=== PATIENT | female | born 1950 | race Caucasian/White ===

== ENCOUNTER 2016-10-31 06:58 | Day surgery (SDC) | payer MEDICARE, MEDICAID ==
[~2016-10-31 06:58] MED LIST: Sodium Chloride 0.9% 1,000 ML IV SCH
[2016-10-31] MEDS ORDERED: Sodium Chloride 0.9% 1,000 ML IV SCH (07:30)
[2016-10-31] MEDS ORDERED: fentaNYL 100 MCG/2 ML SDV ONE (08:00)
[2016-10-31] MEDS ORDERED: Propofol 200 MG/20 ML SDV ONE (08:00)
[2016-10-31] MEDS ORDERED: Midazolam 1 MG/ML 2 ML SDV ONE (08:01)
[2016-10-31 11:14] VITALS: BP 171/70
--- NOTE | 2016-11-03 10:27 | OR ---
DATE OF PROCEDURE: 10/31/2016 PROCEDURE: Colonoscopy. FINDINGS: 1. Complete resolution of ischemic colitis. 2. Sigmoid colon polyp, 5 mm, completely removed using cold biopsy forceps. COMPLICATIONS: None. FICTION AND NONFICTION PROSE WRITER: None. ANESTHETIC: MAC. PREOPERATIVE DIAGNOSIS: History of ischemic colitis. POSTOPERATIVE DIAGNOSIS: History of ischemic colitis. DESCRIPTION OF PROCEDURE: The patient was placed in left lateral decubitus position. Digital rectal exam was performed without abnormality. The scope was introduced and advanced atraumatically to the ileocecal valve. A photo was taken. The scope was brought back to the colon. The area, which was previously marked with ischemic colitis shows 100% resolution of this with excellent mucosa. In the sigmoid colon, a 5 mm polyp was identified and completely removed. No other abnormalities noted. No abnormalities on retroflexion. The patient tolerated the procedure well. Sedrick Villalba MD /[id number]
== END 2016-10-31 11:00 | disposition home or self-care (01) ==
LOC: JP.SDS 06:58
PROVIDERS: ATTEND Surgery
DX: K63.5 Polyp of colon (principal); I25.10 Atherosclerotic heart disease of native coronary artery without angina pectoris; I73.9 Peripheral vascular disease, unspecified; I10 Essential (primary) hypertension; E03.9 Hypothyroidism, unspecified; E11.9 Type 2 diabetes mellitus without complications; Z88.6 Allergy status to analgesic agent; Z88.8 Allergy status to other drugs, medicaments and biological substances; Z91.048 Other nonmedicinal substance allergy status; Z95.1 Presence of aortocoronary bypass graft; Z72.0 Tobacco use
CPT/HCPCS: 45380; 88305; J2250; J2704; J3010; J7040

== ENCOUNTER 2016-12-26 16:39 | Emergency (ER) | payer MEDICARE, MEDICAID ==
[2016-12-26 17:16] VITALS: BP 202/75
--- NOTE | 2016-12-26 17:54 | EDM.PDOC ---
ED HPI Trauma - General Chief Complaint: Upper Extremity Injury/Pain Stated Complaint: SORE RT ELBOW Time Seen by Provider: 12/26/16 17:35 Source: Reports: Patient, Family History Limitations: Reports: No limitations - History of Present Illness INITIAL COMMENTS - FREE TEXT/NARRATIVE: 58-year-old female in with right elbow pain. She woke yesterday morning with a tender right elbow, and noticed over the past 2 days it has become reddened and slightly swollen. Her elbow rests for extended periods of time on a firm surface while she gets dialysis. She has no fever or chills. No other recent trauma. No previous episodes of similar symptoms. Occurred When: other (2 days) Severity: mild Associated Symptoms: Reports: denies other symptoms Allergies/ADRs: Allergies adhesive Allergy (Unknown, Verified 10/31/16 07:35) Itching amlodipine besylate [From Lotrel] Allergy (Unknown, Verified 10/31/16 07:35) Cannot Remember benazepril HCl [From Lotrel] Allergy (Unknown, Verified 10/31/16 07:35) Cannot Remember diltiazem Allergy (Unknown, Verified 10/31/16 07:35) Cannot Remember nickel [Nickel] Allergy (Unknown, Verified 10/31/16 07:35) Itching terazosin HCl [From Hytrin] Allergy (Unknown, Verified 10/31/16 07:35) Rash codeine Allergy (Verified 10/31/16 07:35) Dizziness bupropion HCl [From Zyban] Adverse Reaction (Unknown, Verified 10/31/16 07:35) Nausea and Vomiting lisinopril Adverse Reaction (Unknown, Verified 10/31/16 07:35) Cough metformin HCl [From Glucophage] Adverse Reaction (Unknown, Verified 10/31/16 07: 35) Diarrhea morphine Adverse Reaction (Unknown, Verified 10/31/16 07:35) Nausea and Vomiting Home Medications: Ambulatory Orders Cholecalciferol (Vitamin D3) [Vitamin D] 2,000 unit PO DAILY 05/08/13 [ Confirmed 10/31/16] Clopidogrel [Plavix] 75 mg PO DAILY 05/08/13 [Confirmed 10/31/16] Ezetimibe [Zetia] 10 mg PO DAILY 05/08/13 [Confirmed 10/31/16] Felodipine [Felodipine ER] 5 mg PO BID 05/08/13 [Confirmed 10/31/16] Isosorbide Mononitrate [Imdur] 60 mg PO DAILY 05/08/13 [Confirmed 10/31/16] Levothyroxine 88 mcg PO DAILY 05/08/13 [Confirmed 10/31/16] Metoprolol Succinate 50 mg PO BID 05/08/13 [Confirmed 10/31/16] Nitroglycerin 0.4 mg SL ASDIRECTED PRN 05/08/13 [Confirmed 10/31/16] Furosemide [Lasix] 40 mg PO DAILY 04/07/16 [Confirmed 10/31/16] Insulin Aspart [NovoLOG] 5 units SQ TID 04/07/16 [Confirmed 10/31/16] Insulin Glarg,Human.Rec.Analog [Lantus] 70 units SQ BEDTIME 04/07/16 [Confirmed 10/31/16] Rosuvastatin [Crestor] 40 mg PO DAILY 05/16/16 [Confirmed 10/31/16] Aspirin 81 mg PO DAILY 10/10/16 [Confirmed 10/31/16] PARoxetine HCl [Paroxetine HCl] 5 mg PO DAILY 10/10/16 [Confirmed 10/31/16] Past Medical History HEENT History: Reports: Impaired vision Cardiovascular History: Reports: Bypass, Hypertension, CT, Stents Respiratory History: Reports: Sleep apnea Gastrointestinal History: Reports: Colon polyp, Other (see below) Other Gastrointestinal History: abd pain L side Genitourinary History: Reports: Other (see below) Other Genitourinary History: Hemodialysis 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: 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, Musculoskeletal History: Reports: Osteoporosis Neurological History: Reports: CVA Endocrine/Metabolic History: Reports: Diabetes, type II, Hyperthyroidism, Obesity/BMI 30+ Hematologic History: Reports: Blood transfusion(s), Iron deficiency Oncologic (Cancer) History: Reports: Breast, Cervix, Renal - Infectious Disease History Infectious Disease History: Reports: Chicken pox - Past Surgical History HEENT Surgical History: Reports: None Cardiovascular Surgical History: Reports: Coronary artery bypass, Coronary artery stent Respiratory Surgical History: Reports: None GI Surgical History: Reports: Colonoscopy, Other (see below) Other GI Surgeries/Procedures: hyst Female Surgical History: Reports: Hysterectomy, Mastectomy Endocrine Surgical History: Reports: None Neurological Surgical History: Reports: None Musculoskeletal Surgical History: Reports: Ganglion cyst Oncologic Surgical History: Reports: Mastectomy Social & Family History - Tobacco Use Smoking Status *Q: Current Every Day Smoker Years of Tobacco use: 55 Packs/Tins Daily: 1 Used Tobacco, but Quit: No Second Hand Smoke Exposure: Yes - Caffeine Use Caffeine Use: Reports: None - Alcohol Use Days Per Week of Alcohol Use: 0 - Recreational Drug Use Recreational Drug Use: No Review of Systems - Review of Systems Review Of Systems: See Below Constitutional: Denies: fever Respiratory: Reports: No Symptoms Cardiovascular: Reports: no symptoms GI/Abdominal: Denies: Nausea, Vomiting Skin: Reports: erythema Psychiatric: Reports: no symptoms Trauma Exam - Physical Exam Exam: See Below Exam Limited By: No limitations General Appearance: Reports: alert, no apparent distress Respiratory Exam: Reports: no respiratory distress Extremities: Reports: other (Exam is otherwise limited to the right elbow. There is erythema over the olecranon, and some slight edema but no fluctuance. It does not feel appreciably warm.) Course - Vital Signs Last Recorded V/S: Last Vital Signs Temp 98.2 F 12/26/16 16:48 Pulse 68 12/26/16 16:48 Resp 16 12/26/16 16:48 BP 202/75 H 12/26/16 16:48 Pulse Ox 97 12/26/16 16:48 - Re-Assessments/Exams Free Text/Narrative Re-Assessment/Exam: 12/26/16 17:51 This patient has a olecranon bursitis of the right elbow. It may just be traumatic from resting on a firm surface during dialysis but there may be early cellulitis. She was started on cephalexin 500 3 times a day for the next 7 days , given 10 hydrocodone for pain control. She will return if worsening or concerns, especially developing fever or increased redness despite treatment Departure - Departure Time of Disposition: 18:07 Disposition: Home, Self-Care 01 Condition: good Clinical Impression: Olecranon bursitis of right elbow Instructions: Elbow Bursitis, [id number] Referrals: Maricarmen Riojas NP [Primary Care Provider] - Forms: ED Department Discharge Care Plan Goals: Continue your current medications, take antibiotic as prescribed and avoid firm surfaces with your elbow until improved. Wrap for comfort and use stronger pain medications if needed. Return if worsening such as increased redness or swelling despite treatment, or development of a fever.
== END 2016-12-26 18:00 | disposition home or self-care (01) ==
LOC: JP.ED 16:39
DX: M70.21 Olecranon bursitis, right elbow (principal); E11.9 Type 2 diabetes mellitus without complications; I10 Essential (primary) hypertension; I25.2 Old myocardial infarction; F17.210 Nicotine dependence, cigarettes, uncomplicated; M81.0 Age-related osteoporosis without current pathological fracture; E03.9 Hypothyroidism, unspecified; E66.9 Obesity, unspecified; Z68.27 Body mass index [BMI] 27.0-27.9, adult; Z95.1 Presence of aortocoronary bypass graft; Z90.710 Acquired absence of both cervix and uterus; Z90.89 Acquired absence of other organs; Z79.899 Other long term (current) drug therapy; Z88.8 Allergy status to other drugs, medicaments and biological substances; Z79.4 Long term (current) use of insulin; Z79.82 Long term (current) use of aspirin; Z88.5 Allergy status to narcotic agent
CPT/HCPCS: 99283

== ENCOUNTER 2017-06-03 09:28 | Emergency (ER) | payer MEDICARE, MEDICAID ==
[2017-06-03 09:37] VITALS: BP 155/85
--- NOTE | 2017-06-03 09:56 | EDM.PDOC ---
ED HPI GENERAL MEDICAL PROBLEM - General Chief Complaint: General Stated Complaint: COLD Time Seen by Provider: 06/03/17 09:46 Source of Information: Reports: Patient, RN Notes Reviewed History Limitations: Reports: No Limitations - History of Present Illness INITIAL COMMENTS - FREE TEXT/NARRATIVE: 66-year-old female presents emergency department day complaint of shortness of breath and ill feeling, she states she's been ill for about 4 days denies any fever she does have a cough but does not produce much sputum she's not tried anything she goes to dialysis had this last on Thursday has not taken medications in 3 days nor has she gone to dialysis today - Related Data Allergies Allergy/AdvReac Type Severity Reaction Status Date / Time adhesive Allergy Unknown Itching Verified 06/03/17 09:38 amlodipine besylate Allergy Unknown Cannot Verified 06/03/17 09:38 [From Lotrel] Remember benazepril HCl [From Lotrel] Allergy Unknown Cannot Verified 06/03/17 09:38 Remember diltiazem Allergy Unknown Cannot Verified 06/03/17 09:38 Remember nickel [Nickel] Allergy Unknown Itching Verified 06/03/17 09:38 terazosin HCl [From Hytrin] Allergy Unknown Rash Verified 06/03/17 09:38 codeine Allergy Dizziness Verified 06/03/17 09:38 bupropion HCl [From Zyban] AdvReac Unknown Nausea and Verified 06/03/17 09:38 Vomiting lisinopril AdvReac Unknown Cough Verified 06/03/17 09:38 metformin HCl AdvReac Unknown Diarrhea Verified 06/03/17 09:38 [From Glucophage] morphine AdvReac Unknown Nausea and Verified 06/03/17 09:38 Vomiting Home Meds: Home Meds Cholecalciferol (Vitamin D3) [Vitamin D] 2,000 unit PO DAILY 05/08/13 [History] Clopidogrel [Plavix] 75 mg PO DAILY 05/08/13 [History] Ezetimibe [Zetia] 10 mg PO DAILY 05/08/13 [History] Felodipine [Felodipine ER] 5 mg PO BID 05/08/13 [History] Isosorbide Mononitrate [Imdur] 60 mg PO DAILY 05/08/13 [History] Levothyroxine 88 mcg PO DAILY 05/08/13 [History] Metoprolol Succinate 50 mg PO BID 05/08/13 [History] Nitroglycerin 0.4 mg SL ASDIRECTED PRN 05/08/13 [History] Furosemide [Lasix] 40 mg PO DAILY 04/07/16 [History] Insulin Aspart [NovoLOG] 5 units SQ TID 04/07/16 [History] Insulin Glarg,Human.Rec.Analog [Lantus] 70 units SQ BEDTIME 04/07/16 [History] Rosuvastatin [Crestor] 40 mg PO DAILY 05/16/16 [History] Aspirin 81 mg PO DAILY 10/10/16 [History] PARoxetine HCl [Paroxetine HCl] 5 mg PO DAILY 10/10/16 [History] Past Medical History HEENT History: Reports: Impaired Vision Cardiovascular History: Reports: Bypass, CAD, High Cholesterol, Hypertension, [place] , Stents Respiratory History: Reports: Sleep Apnea Gastrointestinal History: Reports: Colon Polyp, Other (See Below) Other Gastrointestinal History: abd pain L side Genitourinary History: Reports: Other (See Below) Other Genitourinary History: Hemodialysis 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: 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, Musculoskeletal History: Reports: Osteoporosis Neurological History: Reports: CVA Endocrine/Metabolic History: Reports: Diabetes, Type II, Hyperthyroidism, Obesity/BMI 30+ Other Endocrine/Metabolic History: gets dialysis x 3 a week Hematologic History: Reports: Blood Transfusion(s), Iron Deficiency Oncologic (Cancer) History: Reports: Breast, Cervix, Renal - Infectious Disease History Infectious Disease History: Reports: Chicken Pox - Past Surgical History Cardiovascular Surgical History: Reports: Coronary Artery Bypass, Coronary Artery Stent GI Surgical History: Reports: Colonoscopy, Other (See Below) Neurological Surgical History: Reports: None Musculoskeletal Surgical History: Reports: Ganglion Cyst Oncologic Surgical History: Reports: Mastectomy Social & Family History - Tobacco Use Smoking Status *Q: Current Every Day Smoker Years of Tobacco use: 55 Packs/Tins Daily: 1 Used Tobacco, but Quit: No Second Hand Smoke Exposure: Yes - Caffeine Use Caffeine Use: Reports: None - Alcohol Use Days Per Week of Alcohol Use: 0 - Recreational Drug Use Recreational Drug Use: No ED ROS GENERAL - Review of Systems Review Of Systems: See Below Constitutional: Reports: Weakness, Fatigue. Denies: Fever, Chills HEENT: Reports: No Symptoms Respiratory: Reports: Shortness of Breath, Cough. Denies: Sputum Cardiovascular: Reports: Dyspnea on Exertion GI/Abdominal: Reports: No Symptoms : Reports: No Symptoms Musculoskeletal: Reports: No Symptoms Skin: Reports: No Symptoms Neurological: Reports: No Symptoms ED EXAM, GENERAL - Physical Exam Exam: See Below Free Text/Narrative:: General: Female, not in any distress, alert and oriented x3 HEENT: head is atraumatic normocephalic, eyes pupils equal round reactive to light, sclera clear no conjunctivitis appreciated. Ears tympanic membranes clear and carmona landmarks and light reflex are present bilaterally canals are clear. Nose no septal deviation, nares are clear, no blood present. Mouth mucosa is moist and pink no erythema or exudate noted in soft palate, tongue is midline uvula is midline, dentures in place.. Neck: Supple no thyromegaly no tracheal deviation. Nodes: Cervical nodes subclavicular nodes nontender no palpable lymphadenopathy noted. Lungs: Wheezing rhonchi left side of the chest right side is clear CV: Regular rate and rhythm S1 and S2 appreciated no murmurs rubs or gallops noted. Abdomen: Soft, nontender, no palpable masses or organomegaly appreciated, no distention no guarding bowel sounds are present, . Neuro: Cranial nerves II through XII grossly intact Skin: Warm and dry, intact Extremities: No lower extremity edema appreciated, Course - Vital Signs Last Recorded V/S: Last Vital Signs Temp 98.4 F 06/03/17 09:36 Pulse 62 06/03/17 09:36 Resp 16 06/03/17 09:36 BP 155/85 H 06/03/17 09:36 Pulse Ox 95 06/03/17 09:36 - Orders/Labs/Meds Labs: Laboratory Tests 06/03/17 06/03/17 06/03/17 Range/Units 09:51 10:04 10:04 WBC 8.0 (4.5-11.0) K/uL RBC 3.47 (3.30-5.50) M/uL Hgb 11.5 L (12.0-15.0) g/dL Hct 34.1 L (36.0-48.0) % MCV 98 (80-98) fL MCH 33 H (27-31) pg MCHC 34 (32-36) % Plt Count 172 (150-400) K/uL Neut % (Auto) 78 H (36-66) % Lymph % (Auto) 13 L (24-44) % [place] % (Auto) 8 H (2-6) % Eos % (Auto) 2 (2-4) % Baso % (Auto) 0 (0-1) % Sodium 142 (140-148) mmol/L Potassium 4.0 (3.6-5.2) mmol/L Chloride 109 H (100-108) mmol/L Carbon Dioxide 18 L (21-32) mmol/L Anion Gap 19.0 H (5.0-14.0) mmol/L BUN 46 H (7-18) mg/dL Creatinine 6.8 H* (0.6-1.0) mg/dL Est Cr Clr Drug Dosing 5.69 mL/min Estimated GFR (MDRD) 6 L (>60) Glucose 117 H (74-106) mg/dL Calcium 7.8 L D (8.5-10.1) mg/dL Total Bilirubin 0.2 (0.2-1.0) mg/dL AST 22 (15-37) U/L ALT 26 (12-78) U/L Alkaline Phosphatase 82 (46-116) U/L Troponin I 0.040 (0.000-0.056) ng/mL NT-Pro-B Natriuret Pep 97976 H (5-125) pg/mL Total Protein 6.0 L (6.4-8.2) g/dL Albumin 2.3 L (3.4-5.0) g/dL Globulin 3.7 H (2.3-3.5) g/dL Albumin/Globulin Ratio 0.6 L (1.2-2.2) Departure - Departure Time of Disposition: 11:10 Disposition: DC/Tfer to Acute Hospital 02 Condition: Fair Clinical Impression: CHF, Congestive heart failure, ESRD on dialysis - Discharge Information Referrals: Maricarmen Riojas NP [Primary Care Provider] - Forms: ED Department Discharge - Assessment/Plan Plan: Assessment Acuity = acute Site and laterality = congestive heart failure complicated patient with known history coronary artery disease end-stage renal disease on dialysis as well as hypertension and dyslipidemia Etiology = probably related to not taking medications the last 3 days last dialysis was on Thursday Manifestations = shortness of breath with cough Location of injury = Home Lab values = hemoglobin low 11.5 consistent with chronic normochromic anemia creatinine elevated at 6.8 consistent with end-stage renal disease stage GV D troponin normal 0.04 BNP elevated at 42,072 albumin low at 2.3 consistent hypoalbuminemia chest x-ray consistent with a heart failure type pattern Plan Called discussed the case with Dr. Vieira hospitalist identification officer at [facility] kindly accepted the patient in transport she will be transported via private vehicle her will drive her plan for inpatient dialysis Patient was in agreement with the plan all questions were answered, This note was dictated using [employer] voice recognition software please call with any questions.
--- NOTE | 2017-06-03 10:37 | CR ---
Chest 2V HISTORY: Shortness of breath. COMPARISON: 06/23/2012. FINDINGS: Median sternotomy. The cardiac size is stable and normal in size. There is hyperinflation. Slight prominence of the central pulmonary vessels this can be found with pulmonary hypertension. Ayo y mild interstitial edema not completely excluded. Stable blunting of the left costophrenic angle lik derrick represent tiny pleural effusion or pleural thickening. Impression: Borderline congestive change. The central pulmonary vessels are slightly prominent some of this may b e on the basis of pulmonary hypertension.
== END 2017-06-03 11:26 ==
LOC: JP.ED 09:28
DX: E11.22 Type 2 diabetes mellitus with diabetic chronic kidney disease (principal); I13.2 Hypertensive heart and chronic kidney disease with heart failure and with stage 5 chronic kidney disease, or end stage renal disease; I50.9 Heart failure, unspecified; N18.6 End stage renal disease; Z99.2 Dependence on renal dialysis; F17.210 Nicotine dependence, cigarettes, uncomplicated; I25.2 Old myocardial infarction; E66.9 Obesity, unspecified; Z79.82 Long term (current) use of aspirin; Z79.899 Other long term (current) drug therapy; Z88.5 Allergy status to narcotic agent; Z88.8 Allergy status to other drugs, medicaments and biological substances
CPT/HCPCS: 36415; 71020; 71020-26; 80053; 83880; 84484; 85025; 87804; 99285

== ENCOUNTER 2017-09-09 16:37 | Emergency (ER) | payer MEDICARE, MEDICAID ==
--- NOTE | 2017-09-09 16:49 | EDM.PDOC ---
ED HPI GENERAL MEDICAL PROBLEM - General Chief Complaint: IV Access Related Stated Complaint: MEDICAL VIA [facility] Time Seen by Provider: 09/09/17 16:40 Source of Information: Reports: Patient, EMS History Limitations: Reports: No Limitations - History of Present Illness INITIAL COMMENTS - FREE TEXT/NARRATIVE: 67 yo dialysis patient presents from dialysis for evaluation of bleeding continuously from her shunt in the right arm since finishing her dialysis today. She is on Plavix daily. Arrives via EMS with a large plastic clamp on her R antecubital fossa. EMS reported a systolic BP of about 200 en route. 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: Other (see below) (direct pressure) - Related Data Allergies Allergy/AdvReac Type Severity Reaction Status Date / Time adhesive Allergy Unknown Itching Verified 06/03/17 09:38 amlodipine besylate Allergy Unknown Cannot Verified 06/03/17 09:38 [From Lotrel] Remember benazepril HCl [From Lotrel] Allergy Unknown Cannot Verified 06/03/17 09:38 Remember diltiazem Allergy Unknown Cannot Verified 06/03/17 09:38 Remember nickel [Nickel] Allergy Unknown Itching Verified 06/03/17 09:38 terazosin HCl [From Hytrin] Allergy Unknown Rash Verified 06/03/17 09:38 codeine Allergy Dizziness Verified 06/03/17 09:38 bupropion HCl [From Zyban] AdvReac Unknown Nausea and Verified 06/03/17 09:38 Vomiting lisinopril AdvReac Unknown Cough Verified 06/03/17 09:38 metformin HCl AdvReac Unknown Diarrhea Verified 06/03/17 09:38 [From Glucophage] morphine AdvReac Unknown Nausea and Verified 06/03/17 09:38 Vomiting Home Meds: Home Meds Cholecalciferol (Vitamin D3) [Vitamin D] 2,000 unit PO DAILY 05/08/13 [History] Clopidogrel [Plavix] 75 mg PO DAILY 05/08/13 [History] Ezetimibe [Zetia] 10 mg PO DAILY 05/08/13 [History] Felodipine [Felodipine ER] 5 mg PO BID 05/08/13 [History] Isosorbide Mononitrate [Imdur] 60 mg PO DAILY 05/08/13 [History] Levothyroxine 88 mcg PO DAILY 05/08/13 [History] Metoprolol Succinate 50 mg PO BID 05/08/13 [History] Nitroglycerin 0.4 mg SL ASDIRECTED PRN 05/08/13 [History] Furosemide [Lasix] 40 mg PO DAILY 04/07/16 [History] Insulin Aspart [NovoLOG] 5 units SQ TID 04/07/16 [History] Insulin Glarg,Human.Rec.Analog [Lantus] 70 units SQ BEDTIME 04/07/16 [History] Rosuvastatin [Crestor] 40 mg PO DAILY 05/16/16 [History] Aspirin 81 mg PO DAILY 10/10/16 [History] PARoxetine HCl [Paroxetine HCl] 5 mg PO DAILY 10/10/16 [History] Past Medical History HEENT History: Reports: Impaired Vision Cardiovascular History: Reports: Bypass, CAD, High Cholesterol, Hypertension, [place] , Stents Respiratory History: Reports: Sleep Apnea Gastrointestinal History: Reports: Colon Polyp, Other (See Below) Other Gastrointestinal History: abd pain L side Genitourinary History: Reports: Other (See Below) Other Genitourinary History: 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: 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, Musculoskeletal History: Reports: Osteoporosis Neurological History: Reports: CVA Endocrine/Metabolic History: Reports: Diabetes, Type II, Hyperthyroidism, Obesity/BMI 30+ Other Endocrine/Metabolic History: gets dialysis x 3 a week Hematologic History: Reports: Blood Transfusion(s), Iron Deficiency Oncologic (Cancer) History: Reports: Breast, Cervix, Renal - Infectious Disease History Infectious Disease History: Reports: Chicken Pox - Past Surgical History Cardiovascular Surgical History: Reports: Coronary Artery Bypass, Coronary Artery Stent GI Surgical History: Reports: Colonoscopy, Other (See Below) Neurological Surgical History: Reports: None Musculoskeletal Surgical History: Reports: Ganglion Cyst Oncologic Surgical History: Reports: Mastectomy Social & Family History - Tobacco Use Smoking Status *Q: Current Every Day Smoker Years of Tobacco use: 55 Packs/Tins Daily: 1 Used Tobacco, but Quit: No Second Hand Smoke Exposure: Yes - Caffeine Use Caffeine Use: Reports: None - Alcohol Use Days Per Week of Alcohol Use: 0 - Recreational Drug Use Recreational Drug Use: No Review of Systems - Review of Systems Review Of Systems: See Below Constitutional: Reports: No Symptoms Respiratory: Reports: No Symptoms Cardiovascular: Reports: No Symptoms Musculoskeletal: Reports: No Symptoms Skin: Reports: Wound (R antecubital fossa) Neurological: Reports: No Symptoms ED EXAM, GENERAL - Physical Exam Exam: See Below Exam Limited By: No Limitations General Appearance: Alert, WD/WN, No Apparent Distress Eye Exam: Bilateral Eye: Normal Inspection Ears: Normal External Exam, Normal Canal, Hearing Grossly Normal Ear Exam: Bilateral Ear: Auricle Normal, Canal Normal Nose: Normal Inspection, Normal Mucosa, No Blood Throat/Mouth: Normal Inspection, Normal Lips, Normal Oropharynx, Normal Voice, No Airway Compromise Head: Atraumatic, Normocephalic Neck: Normal Inspection Respiratory/Chest: No Respiratory Distress, Lungs Clear, Normal Breath Sounds, No Accessory Muscle Use Cardiovascular: Regular Rate, Rhythm GI/Abdominal: Normal Bowel Sounds, Soft, Non-Tender Extremities: Normal Inspection, Normal Range of Motion, Non-Tender, No Pedal Edema Neurological: Alert, Oriented, CN II-XII Intact, Normal Cognition, No Motor/ Sensory Deficits Psychiatric: Normal Affect, Normal Mood Skin Exam: Warm, Dry, Intact, Normal Color, No Rash, Wound/Incision (arterial bleeding from the R antecubital fossa. ) Course - Vital Signs Text/Narrative:: Unable to stop bleeding here in ER with pressure to allow suturing. Case discussed with Dr. Alcaraz at [facility]. Will send her to the ER Dr. South accepting. Last Recorded V/S: Last Vital Signs Temp 36.2 C 09/09/17 16:44 Pulse 57 L 09/09/17 16:44 Resp 16 09/09/17 16:44 BP 173/60 H 09/09/17 16:44 Pulse Ox 96 09/09/17 16:44 Departure - Departure Time of Disposition: 17:45 Disposition: DC/Tfer to Acute Hospital 02 Condition: Fair Clinical Impression: Hemorrhage of arteriovenous fistula Qualifiers: Encounter type: initial encounter Qualified Code(s): T82.838A - Hemorrhage due to vascular prosthetic devices, implants and grafts, initial encounter Clinical Impression: (Ruled Out): Surgical arteriovenous fistula hemorrhage - Discharge Information Referrals: Maricarmen Riojas NP [Primary Care Provider] - Forms: ED Department Discharge
[2017-09-09 17:39] VITALS: BP 199/50
[2017-09-09] MEDS ORDERED: Lactated Ringers 1,000 ML IV SCH (17:45)
== END 2017-09-09 18:00 ==
LOC: JP.ED 16:37
DX: T82.838A Hemorrhage due to vascular prosthetic devices, implants and grafts, initial encounter (principal); F17.210 Nicotine dependence, cigarettes, uncomplicated; I10 Essential (primary) hypertension; E11.9 Type 2 diabetes mellitus without complications; E03.9 Hypothyroidism, unspecified; E78.00 Pure hypercholesterolemia, unspecified; Z79.82 Long term (current) use of aspirin; Z88.8 Allergy status to other drugs, medicaments and biological substances; Z88.1 Allergy status to other antibiotic agents; Z88.5 Allergy status to narcotic agent; Z88.2 Allergy status to sulfonamides; Z79.4 Long term (current) use of insulin; Z91.09 Other allergy status, other than to drugs and biological substances; Z79.899 Other long term (current) drug therapy
CPT/HCPCS: 99285; J7120

== ENCOUNTER 2018-04-02 16:01 | Emergency (ER) | payer MEDICARE, MEDICAID ==
[2018-04-02 16:08] VITALS: BP 184/61
--- NOTE | 2018-04-02 17:01 | EDM.PDOC ---
ED HPI GENERAL MEDICAL PROBLEM - General Chief Complaint: General Stated Complaint: illness Time Seen by Provider: 04/02/18 16:43 Source of Information: Reports: Patient, Family, RN Notes Reviewed History Limitations: Reports: No Limitations - History of Present Illness INITIAL COMMENTS - FREE TEXT/NARRATIVE: 67-year-old dialysis patient presents to the emergency department with bleeding from her AV fistula she recently left dialysis, she has had the clamp on for one hour - Related Data Allergies Allergy/AdvReac Type Severity Reaction Status Date / Time adhesive Allergy Unknown Itching Verified 04/02/18 16:11 amlodipine besylate Allergy Unknown Cannot Verified 04/02/18 16:11 [From Lotrel] Remember benazepril HCl [From Lotrel] Allergy Unknown Cannot Verified 04/02/18 16:11 Remember diltiazem Allergy Unknown Cannot Verified 04/02/18 16:11 Remember nickel [Nickel] Allergy Unknown Itching Verified 04/02/18 16:11 terazosin HCl [From Hytrin] Allergy Unknown Rash Verified 04/02/18 16:11 codeine Allergy Dizziness Verified 04/02/18 16:11 bupropion HCl [From Zyban] AdvReac Unknown Nausea and Verified 04/02/18 16:11 Vomiting lisinopril AdvReac Unknown Cough Verified 04/02/18 16:11 metformin HCl AdvReac Unknown Diarrhea Verified 04/02/18 16:11 [From Glucophage] morphine AdvReac Unknown Nausea and Verified 04/02/18 16:11 Vomiting Home Meds: Home Meds Ezetimibe [Zetia] 10 mg PO DAILY 05/08/13 [History] Insulin Glarg,Human.Rec.Analog [Lantus] 25 units SQ BEDTIME 04/07/16 [History] Rosuvastatin [Crestor] 40 mg PO DAILY 05/16/16 [History] PARoxetine HCl [Paroxetine HCl] 10 mg PO DAILY 10/10/16 [History] Levothyroxine Sodium [Levoxyl] 50 mcg PO DAILY 03/21/18 [History] Losartan [Cozaar] 100 mg PO DAILY 03/21/18 [History] Aspirin [Ecotrin] 81 mg PO DAILY 04/02/18 [History] Calcium Carbonate [Calcium] 1 tab PO BID 04/02/18 [History] Cholecalciferol (Vitamin D3) [Vitamin D3] 1 cap PO DAILY 04/02/18 [History] Clopidogrel Bisulfate [Clopidogrel] 75 mg PO DAILY 04/02/18 [History] Felodipine [Felodipine ER] 5 mg PO BID 04/02/18 [History] Folic Acid/Vit B Complex and C [Dialyvite] 1 tab PO DAILY 04/02/18 [History] Furosemide [Lasix] 40 mg PO DAILY 04/02/18 [History] Metoprolol Tartrate 75 mg PO BID 04/02/18 [History] Nitroglycerin [Nitrostat] 0.4 mg SL ASDIRECTED PRN 04/02/18 [History] Sevelamer Carbonate [Renvela] 800 mg PO TID 04/02/18 [History] cloNIDine [cloNIDine HCl] 0.1 mg PO BID 04/02/18 [History] Past Medical History HEENT History: Reports: Impaired Vision Cardiovascular History: Reports: Bypass, CAD, High Cholesterol, Hypertension, [place] , Stents Respiratory History: Reports: Sleep Apnea Gastrointestinal History: Reports: Colon Polyp, Other (See Below) Other Gastrointestinal History: abd pain L side Genitourinary History: Reports: Dialysis, Other (See Below) Other Genitourinary History: Hemodialysis 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: Reports: 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, Musculoskeletal History: Reports: Osteoporosis Neurological History: Reports: CVA Endocrine/Metabolic History: Reports: Diabetes, Type II, Hyperthyroidism, Obesity/BMI 30+ Other Endocrine/Metabolic History: gets dialysis x 3 a week, MWF Hematologic History: Reports: Blood Transfusion(s), Iron Deficiency Oncologic (Cancer) History: Reports: Breast, Cervix, Renal - Infectious Disease History Infectious Disease History: Reports: Chicken Pox - Past Surgical History Cardiovascular Surgical History: Reports: Coronary Artery Bypass, Coronary Artery Stent GI Surgical History: Reports: Colonoscopy, Other (See Below) Female Surgical History: Reports: Section, Hysterectomy Endocrine Surgical History: Reports: Other (See Below) Other Endocrine Surgeries/Procedures: "killed it off" Neurological Surgical History: Reports: None Musculoskeletal Surgical History: Reports: Ganglion Cyst Oncologic Surgical History: Reports: Mastectomy, Other (See Below) Other Oncologic Surgeries/Procedures: left kidney removed Social & Family History - Tobacco Use Smoking Status *Q: Current Every Day Smoker Years of Tobacco use: 60 Packs/Tins Daily: 1 - Caffeine Use Caffeine Use: Reports: Soda - Recreational Drug Use Recreational Drug Use: No ED ROS GENERAL - Review of Systems Review Of Systems: See Below Skin: Reports: Wound ED EXAM, GENERAL - Physical Exam Exam: See Below Free Text/Narrative:: Bleeding from her puncture site of the AV fistula Exam Limited By: No Limitations General Appearance: Alert, WD/WN, No Apparent Distress ED GENERAL MEDICAL PROCEDURES - Laceration/Wound Repair Right Arm Appearance: Superficial Distal NVT: Neuro & Vascular Intact, No Tendon Injury Skin Prep: Isopropyl Alcohol (Alcohol) Closed with: Sutures Suture Size: other (5-0) # of Sutures: 1 Suture Type: Other ([id number]) Complications: No Course - Vital Signs Last Recorded V/S: Last Vital Signs Temp 98.2 F 04/02/18 16:20 Pulse 62 04/02/18 16:20 Resp 16 04/02/18 16:20 BP 184/61 H 04/02/18 16:20 Pulse Ox 95 04/02/18 16:20 Departure - Departure Time of Disposition: 17:00 Disposition: Home, Self-Care 01 Condition: Fair Clinical Impression: Hemorrhage of arteriovenous fistula Qualifiers: Encounter type: initial encounter Qualified Code(s): T82.838A - Hemorrhage due to vascular prosthetic devices, implants and grafts, initial encounter - Discharge Information Referrals: PCP,None [Primary Care Provider] - Additional Instructions: Resume your regular medications keep your regular dialysis schedule call return to the emergency department worsening of symptoms - Assessment/Plan Plan: Assessment Acuity = acute Site and laterality = bleeding AV fistula site Etiology = from dialysis catheter Manifestations = none Location of injury = Home Lab values = none Plan Called discussed case Dr. Sweeney general surgery recommended [id number] stitch, she can follow-up regular dialysis and regular medications This note was dictated using [employer] voice recognition software please call with any questions on syntax or grammar.
== END 2018-04-02 17:12 | disposition home or self-care (01) ==
LOC: JP.ED 16:01
DX: T82.838A Hemorrhage due to vascular prosthetic devices, implants and grafts, initial encounter (principal); S41.111A Laceration without foreign body of right upper arm, initial encounter; I10 Essential (primary) hypertension; I25.2 Old myocardial infarction; E11.9 Type 2 diabetes mellitus without complications; E05.90 Thyrotoxicosis, unspecified without thyrotoxic crisis or storm; Z99.2 Dependence on renal dialysis; Z91.09 Other allergy status, other than to drugs and biological substances; Z88.8 Allergy status to other drugs, medicaments and biological substances; Z79.899 Other long term (current) drug therapy; E78.00 Pure hypercholesterolemia, unspecified; X58.XXXA Exposure to other specified factors, initial encounter; Z79.82 Long term (current) use of aspirin
CPT/HCPCS: 12001; 99282; 99283-25

== ENCOUNTER 2018-10-22 15:59 | Emergency (ER) | payer MEDICARE, MEDICAID ==
--- NOTE | 2018-10-22 17:55 | EDM.PDOC ---
ED HPI GENERAL MEDICAL PROBLEM - General Chief Complaint: General Stated Complaint: SENT FROM [facility] Time Seen by Provider: 10/22/18 16:41 Source of Information: Reports: Patient History Limitations: Reports: No Limitations - History of Present Illness INITIAL COMMENTS - FREE TEXT/NARRATIVE: This lady just came over from the dialysis clinic. She had finished her dialysis but is bleeding from the upper puncture site to her shot it is on her the biceps area. I placed a clamp on it but it still doesn't seem to want to stop. No other complaints - Related Data Allergies Allergy/AdvReac Type Severity Reaction Status Date / Time adhesive Allergy Unknown Itching Verified 04/28/18 11:11 amlodipine besylate Allergy Unknown Cannot Verified 04/28/18 11:11 [From Lotrel] Remember benazepril HCl [From Lotrel] Allergy Unknown Cannot Verified 04/28/18 11:11 Remember diltiazem Allergy Unknown Cannot Verified 04/28/18 11:11 Remember nickel [Nickel] Allergy Unknown Itching Verified 04/28/18 11:11 terazosin HCl [From Hytrin] Allergy Unknown Rash Verified 04/28/18 11:11 codeine Allergy Dizziness Verified 04/28/18 11:11 bupropion HCl [From Zyban] AdvReac Unknown Nausea and Verified 04/28/18 11:11 Vomiting lisinopril AdvReac Unknown Cough Verified 04/28/18 11:11 metformin HCl AdvReac Unknown Diarrhea Verified 04/28/18 11:11 [From Glucophage] morphine AdvReac Unknown Nausea and Verified 04/28/18 11:11 Vomiting Home Meds: Home Meds Ezetimibe [Zetia] 10 mg PO DAILY 05/08/13 [History] Insulin Glarg,Human.Rec.Analog [Lantus] 25 units SQ BEDTIME 04/07/16 [History] Rosuvastatin [Crestor] 40 mg PO DAILY 05/16/16 [History] PARoxetine HCl [Paroxetine HCl] 10 mg PO DAILY 10/10/16 [History] Levothyroxine Sodium [Levoxyl] 50 mcg PO DAILY 03/21/18 [History] Losartan [Cozaar] 100 mg PO DAILY 03/21/18 [History] Aspirin [Ecotrin] 81 mg PO DAILY 04/02/18 [History] Calcium Carbonate [Calcium] 1 tab PO BID 04/02/18 [History] Cholecalciferol (Vitamin D3) [Vitamin D3] 1 cap PO DAILY 04/02/18 [History] Clopidogrel Bisulfate [Clopidogrel] 75 mg PO DAILY 04/02/18 [History] Felodipine [Felodipine ER] 5 mg PO BID 04/02/18 [History] Folic Acid/Vit B Complex and C [Dialyvite] 1 tab PO DAILY 04/02/18 [History] Furosemide [Lasix] 40 mg PO DAILY 04/02/18 [History] Metoprolol Tartrate 75 mg PO BID 04/02/18 [History] Nitroglycerin [Nitrostat] 0.4 mg SL ASDIRECTED PRN 04/02/18 [History] Sevelamer Carbonate [Renvela] 800 mg PO TID 04/02/18 [History] cloNIDine [cloNIDine HCl] 0.1 mg PO BID 04/02/18 [History] Past Medical History HEENT History: Reports: Impaired Vision Cardiovascular History: Reports: Bypass, CAD, High Cholesterol, Hypertension, [place] , Stents Respiratory History: Reports: Sleep Apnea Gastrointestinal History: Reports: Colon Polyp, Other (See Below) Other Gastrointestinal History: abd pain L side Genitourinary History: Reports: Dialysis, Other (See Below) Other Genitourinary History: Hemodialysis 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: 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, Musculoskeletal History: Reports: Osteoporosis Neurological History: Reports: CVA Endocrine/Metabolic History: Reports: Diabetes, Type II, Hyperthyroidism, Obesity/BMI 30+ Other Endocrine/Metabolic History: gets dialysis x 3 a week, MWF Hematologic History: Reports: Blood Transfusion(s), Iron Deficiency Oncologic (Cancer) History: Reports: Breast, Cervix, Renal - Infectious Disease History Infectious Disease History: Reports: Chicken Pox - Past Surgical History Cardiovascular Surgical History: Reports: Coronary Artery Bypass, Coronary Artery Stent GI Surgical History: Reports: Colonoscopy, Other (See Below) Female Surgical History: Reports: Section, Hysterectomy Endocrine Surgical History: Reports: Other (See Below) Other Endocrine Surgeries/Procedures: "killed it off" Neurological Surgical History: Reports: None Musculoskeletal Surgical History: Reports: Ganglion Cyst Oncologic Surgical History: Reports: Mastectomy, Other (See Below) Other Oncologic Surgeries/Procedures: left kidney removed Social & Family History - Tobacco Use Smoking Status *Q: Never Smoker - Caffeine Use Caffeine Use: Reports: Coffee - Recreational Drug Use Recreational Drug Use: No ED ROS GENERAL - Review of Systems Review Of Systems: ROS reveals no pertinent complaints other than HPI. ED EXAM, GENERAL - Physical Exam Exam: See Below Exam Limited By: No Limitations General Appearance: Alert, Other (Chronically ill appearing) Extremities: Other (She has fairly active bleeding from the puncture site to the shots in the right biceps area. There was a large clamp on that area.) Course - Vital Signs Last Recorded V/S: Last Vital Signs Temp 36.1 C 10/22/18 16:04 Pulse 50 L 10/22/18 16:04 Resp 18 10/22/18 16:04 BP 213/61 H 10/22/18 16:04 Pulse Ox - Re-Assessments/Exams Free Text/Narrative Re-Assessment/Exam: 10/22/18 17:51 The clamp and dressing were removed and a compression dressing was placed on that area. It was rechecked just a short while ago and the bleeding appears to have stopped area Departure - Departure Time of Disposition: 17:52 Disposition: Home, Self-Care 01 Condition: Fair Clinical Impression: Bleeding from dialysis shunt - Discharge Information Referrals: Reyna Connors PALeiC [Primary Care Provider] - Additional Instructions: Leave the dressing on tonight and he may remove it tomorrow. If you have more trouble bleeding return to the ER. Follow-up for dialysis at your next scheduled appointment
[2018-10-22 18:01] VITALS: BP 203/62
== END 2018-10-22 18:18 | disposition home or self-care (01) ==
LOC: JP.ED 15:59
DX: T82.838A Hemorrhage due to vascular prosthetic devices, implants and grafts, initial encounter (principal); E11.9 Type 2 diabetes mellitus without complications; I10 Essential (primary) hypertension; E78.00 Pure hypercholesterolemia, unspecified; I25.2 Old myocardial infarction; Z79.4 Long term (current) use of insulin; Z79.899 Other long term (current) drug therapy; Z91.09 Other allergy status, other than to drugs and biological substances; Z88.5 Allergy status to narcotic agent; Z88.8 Allergy status to other drugs, medicaments and biological substances
CPT/HCPCS: 99283

== ENCOUNTER 2018-10-23 13:08 | Emergency (ER) | payer MEDICARE, MEDICAID ==
[2018-10-23 13:52] VITALS: BP 155/44
--- NOTE | 2018-10-23 14:26 | EDM.PDOC ---
ED HPI GENERAL MEDICAL PROBLEM - General Chief Complaint: Upper Extremity Injury/Pain Stated Complaint: SWOLLEN RIGHT HAND Time Seen by Provider: 10/23/18 14:10 Source of Information: Reports: Patient, Old Records, RN History Limitations: Reports: No Limitations - History of Present Illness INITIAL COMMENTS - FREE TEXT/NARRATIVE: 68 yo female dialysis patient was seen here last night for a bleeding shunt. She had a compressive dressing applied and was not told to elevate her arm. Today when she woke up that R arm was swollen. She is here worried that this represents and infection. She has not had a fever or chills. No other sx's. Bleeding has been controlled since she was seen last night. Onset: Today Onset Date: 10/23/18 Duration: Hour(s):, Getting Worse Location: Reports: Upper Extremity, Right Quality: Reports: Other (no pain) Severity: Mild Improves with: Reports: None Worsens with: Reports: Other (? 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) (none) - Related Data Allergies Allergy/AdvReac Type Severity Reaction Status Date / Time adhesive Allergy Unknown Itching Verified 10/23/18 13:57 amlodipine besylate Allergy Unknown Cannot Verified 10/23/18 13:57 [From Lotrel] Remember benazepril HCl [From Lotrel] Allergy Unknown Cannot Verified 10/23/18 13:57 Remember diltiazem Allergy Unknown Cannot Verified 10/23/18 13:57 Remember nickel [Nickel] Allergy Unknown Itching Verified 10/23/18 13:57 terazosin HCl [From Hytrin] Allergy Unknown Rash Verified 10/23/18 13:57 codeine Allergy Dizziness Verified 10/23/18 13:57 bupropion HCl [From Zyban] AdvReac Unknown Nausea and Verified 10/23/18 13:57 Vomiting lisinopril AdvReac Unknown Cough Verified 10/23/18 13:57 metformin HCl AdvReac Unknown Diarrhea Verified 10/23/18 13:57 [From Glucophage] morphine AdvReac Unknown Nausea and Verified 10/23/18 13:57 Vomiting Home Meds: Home Meds Ezetimibe [Zetia] 10 mg PO DAILY 05/08/13 [History] Insulin Glarg,Human.Rec.Analog [Lantus] 25 units SQ BEDTIME 04/07/16 [History] Rosuvastatin [Crestor] 40 mg PO DAILY 05/16/16 [History] PARoxetine HCl [Paroxetine HCl] 10 mg PO DAILY 10/10/16 [History] Levothyroxine Sodium [Levoxyl] 50 mcg PO DAILY 03/21/18 [History] Losartan [Cozaar] 100 mg PO DAILY 03/21/18 [History] Aspirin [Ecotrin] 81 mg PO DAILY 04/02/18 [History] Calcium Carbonate [Calcium] 1 tab PO BID 04/02/18 [History] Cholecalciferol (Vitamin D3) [Vitamin D3] 1 cap PO DAILY 04/02/18 [History] Clopidogrel Bisulfate [Clopidogrel] 75 mg PO DAILY 04/02/18 [History] Felodipine [Felodipine ER] 5 mg PO BID 04/02/18 [History] Folic Acid/Vit B Complex and C [Dialyvite] 1 tab PO DAILY 04/02/18 [History] Furosemide [Lasix] 40 mg PO DAILY 04/02/18 [History] Metoprolol Tartrate 75 mg PO BID 04/02/18 [History] Nitroglycerin [Nitrostat] 0.4 mg SL ASDIRECTED PRN 04/02/18 [History] Sevelamer Carbonate [Renvela] 800 mg PO TID 04/02/18 [History] cloNIDine [cloNIDine HCl] 0.1 mg PO BID 04/02/18 [History] Past Medical History HEENT History: Reports: Impaired Vision Cardiovascular History: Reports: Bypass, CAD, High Cholesterol, Hypertension, [place] , Stents Respiratory History: Reports: Sleep Apnea Gastrointestinal History: Reports: Colon Polyp, Other (See Below) Other Gastrointestinal History: abd pain L side Genitourinary History: Reports: Dialysis, Other (See Below) Other Genitourinary History: Hemodialysis 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: 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, Musculoskeletal History: Reports: Osteoporosis Neurological History: Reports: CVA Endocrine/Metabolic History: Reports: Diabetes, Type II, Hyperthyroidism, Obesity/BMI 30+ Other Endocrine/Metabolic History: gets dialysis x 3 a week, MWF Hematologic History: Reports: Blood Transfusion(s), Iron Deficiency Oncologic (Cancer) History: Reports: Breast, Cervix, Renal - Infectious Disease History Infectious Disease History: Reports: Chicken Pox - Past Surgical History Cardiovascular Surgical History: Reports: Coronary Artery Bypass, Coronary Artery Stent GI Surgical History: Reports: Colonoscopy, Other (See Below) Female Surgical History: Reports: Section, Hysterectomy Endocrine Surgical History: Reports: Other (See Below) Other Endocrine Surgeries/Procedures: "killed it off" Neurological Surgical History: Reports: None Musculoskeletal Surgical History: Reports: Ganglion Cyst Oncologic Surgical History: Reports: Mastectomy, Other (See Below) Other Oncologic Surgeries/Procedures: left kidney removed Social & Family History - Tobacco Use Smoking Status *Q: Current Every Day Smoker Years of Tobacco use: 1 Packs/Tins Daily: 55 - Caffeine Use Caffeine Use: Reports: Coffee Review of Systems - Review of Systems Review Of Systems: See Below Constitutional: Reports: No Symptoms Eyes: Reports: No Symptoms Ears: Reports: No Symptoms Nose: Reports: No Symptoms Mouth/Throat: Reports: No Symptoms Respiratory: Reports: No Symptoms Cardiovascular: Reports: Edema (R arm ) GI/Abdominal: Reports: No Symptoms Genitourinary: Reports: No Symptoms Musculoskeletal: Reports: No Symptoms Skin: Reports: No Symptoms Neurological: Reports: No Symptoms ED EXAM, GENERAL - Physical Exam Exam: See Below Exam Limited By: No Limitations General Appearance: Alert, WD/WN, No Apparent Distress Eye Exam: Bilateral Eye: Normal Inspection Ears: Normal External Exam, Normal Canal, Hearing Grossly Normal Ear Exam: Bilateral Ear: Auricle Normal, Canal Normal Nose: Normal Inspection, No Blood Throat/Mouth: Normal Inspection, Normal Voice, No Airway Compromise Head: Atraumatic, Normocephalic Neck: Normal Inspection Respiratory/Chest: No Respiratory Distress, No Accessory Muscle Use Cardiovascular: Regular Rate, Rhythm Extremities: Non-Tender, Pedal Edema (R arm only. ), Increased Warmth (minimal) . No: No Pedal Edema, Limited Range of Motion Neurological: Alert, Oriented, CN II-XII Intact, Normal Cognition, No Motor/ Sensory Deficits Psychiatric: Normal Affect, Normal Mood Skin Exam: Warm, Dry, Intact, Normal Color, No Rash Course - Vital Signs Text/Narrative:: Compressive dressing removed from the R arm with continued hemostasis noted. Arm elevated and she was observed for Last Recorded V/S: Last Vital Signs Temp 34.7 C L 10/23/18 13:48 Pulse 49 L 10/23/18 13:48 Resp 16 10/23/18 13:48 BP 155/44 H 10/23/18 13:48 Pulse Ox 100 10/23/18 13:48 Departure - Departure Time of Disposition: 15:10 Disposition: Home, Self-Care 01 Condition: Good Clinical Impression: Arm edema - Discharge Information *PRESCRIPTION DRUG MONITORING PROGRAM REVIEWED*: No *COPY OF PRESCRIPTION DRUG MONITORING REPORT IN PATIENT MILES: No Instructions: Edema Referrals: Reyna Connors PA-C [Primary Care Provider] - Forms: ED Department Discharge Additional Instructions: Keep L arm elevated. Return for fever.
== END 2018-10-23 16:12 | disposition home or self-care (01) ==
LOC: JP.ED 13:08
DX: R60.9 Edema, unspecified (principal); E11.9 Type 2 diabetes mellitus without complications; I10 Essential (primary) hypertension; E78.00 Pure hypercholesterolemia, unspecified; I25.2 Old myocardial infarction; E03.9 Hypothyroidism, unspecified; Z79.82 Long term (current) use of aspirin; Z79.4 Long term (current) use of insulin; Z79.899 Other long term (current) drug therapy; Z88.5 Allergy status to narcotic agent; Z88.8 Allergy status to other drugs, medicaments and biological substances; Z91.09 Other allergy status, other than to drugs and biological substances
CPT/HCPCS: 99282